=== PATIENT | female | born 1945 | race Caucasian/White ===

== ENCOUNTER → 2016-06-22 | Outpatient (CLI) | payer OTHER ==
[~2016-06-22] MED LIST: AMLO-114 PO; ASPEC81 PO; CALC-393 PO; CHOL100010 PO; CLON1TAB3 PO; GABA-113 PO; GABA300C19 PO; INSDGI SC; LOSA50TA54 PO; METO50TA7 PO; MILN50TA PO; MULTTAB58 PO; NVLGI SC; PANC6000 PO; ROSU5TAB PO; WARF2TAB PO
== END | disposition home or self-care (01) ==
LOC: C.RDSM 13:00
PROVIDERS: ATTEND Physical Medicine & Rehabilitation Sports Medicine
DX: Z47.1 Aftercare following joint replacement surgery (principal); Z96.641 Presence of right artificial hip joint

== ENCOUNTER → 2017-07-05 | Outpatient (CLI) | payer OTHER ==
[~2017-07-05] MED LIST changes: +GABA-1218 PO; -GABA300C19 PO
== END | disposition home or self-care (01) ==
LOC: C.RDSM 14:15
PROVIDERS: ATTEND Physical Medicine & Rehabilitation Sports Medicine
DX: M25.559 Pain in unspecified hip (principal); Z96.641 Presence of right artificial hip joint